=== PATIENT | female | born 1980 | race Hispanic/Latino ===

== ENCOUNTER 2018-12-23 12:34 | Emergency (ER) | payer OTHER | END 2018-12-23 12:58 | disposition home or self-care (01) | LOC: EDH 12:34 | DX: S00.83XA Contusion of other part of head, initial encounter (principal); F32.9 Major depressive disorder, single episode, unspecified; F41.9 Anxiety disorder, unspecified; M47.896 Other spondylosis, lumbar region; Z72.0 Tobacco use; X83.8XXA Intentional self-harm by other specified means, initial encounter; Y93.89 Activity, other specified; Y92.810 Car as the place of occurrence of the external cause; Y99.8 Other external cause status ==